=== PATIENT | female | born 1985 | race Caucasian/White ===

== ENCOUNTER 2022-07-18 17:05 | Emergency (ER) | payer OTHER ==
[~2022-07-18] VITALS: Ht 175 cm; Wt 115.0 kg
[~2022-07-18 17:05] MED LIST: ACHD5005 PO; CEFD300C3 PO; CIPR500T78 PO; CLIN150C20 PO; Docusate Sodium PO; HYDR-3720 PO; Ibuprofen PO; LISI10TA2 PO; LORA-404 PO; MECL25TA3 PO; METO-351 PO; PEDI1TAB46 PO
[2022-07-18] MEDS ORDERED: FAMO20TA5 (17:22)
[2022-07-18 17:35] LABS: BILIRUBIN,URINE NEGATIVE (NEGATIVE); CLARITY,URINE CLEAR; COLOR,URINE YELLOW; GLUCOSE, URINE (UA) NEGATIVE (NEGATIVE); KETONES,URINE NEGATIVE (NEGATIVE); LEUKOCYTE ESTERASE ,URINE NEGATIVE (NEGATIVE); NITRITE,URINE NEGATIVE (NEGATIVE); PH,URINE 5.5 (5-9); PROTEIN,URINE NEGATIVE (NEGATIVE)
[2022-07-18 17:42] LABS: BACTERIA,URINE FEW /HPF
[2022-07-18] MEDS ORDERED: MECLIZINE 25 MG (ANTIVERT) TAB PO STA (18:28)
[2022-07-18] MEDS ORDERED: KETOROLAC 30 MG/ML VIAL IVP STA (18:28)
[2022-07-18] MEDS ORDERED: NS IV 500 ML 500 ML IV ONE (18:30)
--- NOTE | 2022-07-18 18:32 | ED Headache ---
General Chief Complaint: Head/Cervical Problems Stated Complaint: LIGHTHEADED,HEADACHE Nursing Triage Note: HEADACHE AND DIZZINESS X3 DAYS. RECENTLY DX WITH LOW VIT D. NO MEDS TAKEN FOR HEADACHE. History of Present Illness Date Seen by Provider: Jul 18, 2022 Time Seen by Provider: 17:20 Initial Comments 37-year-old female presents for headache and vertigo that have been present for approximately 3 days. She has not treated anything with prescription or [id number] medication. 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 She does not have history of recurrent headaches. Patient reports the vertigo improves when she lies down or sleeps. Timing/Duration: other (3 days) Severity/Quality: mild Location: occipital Associated Symptoms: No confusion, No fatigue, No facial pain, No fever/chills, No loss of consciousness, No nausea/vomiting, No nasal congestion, No stiff neck, No vision changes, No weakness Allergies and Home Medications Allergies Coded Allergies: Sulfa (Sulfonamide Antibiotics) (Verified Allergy, Intermediate, HIVES, 10/26/13) Hives and vomiting penicillin G (Verified Allergy, Unknown, 11/08/05) Patient Home Medication List Home Medication List Reviewed: Yes Famotidine (Famotidine) 20 Mg Tablet, (Reported) Entered as Reported by: TATIANA BARRETT on 07/18/221721 Last Action: New Order Discontinued Medications Clindamycin HCl (Clindamycin HCl) 150 Mg Capsule, 150 MG PO TID, (Reported) Discontinued Reason: No Longer Taking Entered as Reported by: EZIO HOWARD on 04/30/162153 Last Action: Discontinued Lorazepam (Ativan) 0.5 Mg Tablet, 0.5 MG PO QID PRN for ANXIETY, (Reported) Discontinued Reason: No Longer Taking Entered as Reported by: EZIO HOWARD on 04/30/162153 Last Action: Discontinued Metoprolol Succinate (Toprol Xl) 25 Mg Tab.er.24h, 12.5 MG PO DAILY, (Reported) Discontinued Reason: No Longer Taking Entered as Reported by: EZIO HOWARD on 04/30/162153 Last Action: Discontinued Review of Systems Review of Systems Constitutional: no symptoms reported, see HPI Psychiatric/Neurological: See HPI, Headache, Other (Vertigo) All Other Systems Reviewed Negative Unless Noted: Yes Past Ibipjhd-Yomait-Roytyq Hx Patient Social History Tobacco Use?: Yes Smoking Status: Former Smoker Substance use?: No Alcohol Use?: No Immunizations Up To Date Tetanus Booster (TDap): Less than 5yrs PED Vaccines UTD: Yes Second COVID19 Vaccination Fernie: UNKNOWN COVID19 Vaccine Door Patcher: MODERNA Seasonal Allergies Seasonal Allergies: No Past Medical History Gallbladder Hypertension, Irregular Heartbeat, Palpitations Last Menstrual Period: Jul 04, 2022 Reproductive Disorders: No Female Reproductive Disorders: Denies Sexually Transmitted Disease: No HIV/AIDS: No Gastroesophageal Reflux, Hemorrhoids, Gall Bladder Disease Fractures Loss of Vision: Denies Hearing Impairment: Denies Anxiety Psoriasis Adverse Reaction/Blood Tranf: No Family Medical History Reviewed Nursing Family Hx Alcoholism 19 FATHER Arthritis MATERNAL GRANDMA MATERNAL GRANDFATHER PATERNAL GRANDMOTHER PATERNAL GRANDFATHER Cardiovascular disease 19 FATHER ( AGE 51 YEARS) Coronary thrombosis 19 FATHER ( AGE 51) Diabetes mellitus PATERNAL GRANDMOTHER PATERNAL GRANDFATHER Hypertension 19 FATHER MATERNAL GRANDMA MATERNAL GRANDFATHER PATERNAL GRANDMOTHER PATERNAL GRANDFATHER Myocardial infarction PATERNAL GRANDMOTHER Neoplasm MATERNAL GRANDMA Parkinson's disease MATERNAL GRANDFATHER No Family History of: AIDS Abdominal aortic aneurysm [place]'s disease Alzheimer's disease Aphasia Asthma Cancer of mouth Cataracts Colon cancer Completed stroke Congenital disease Congenital heart disease Cystic fibrosis Deafness or hearing loss Dementia Drug abuse Dysphasia Fibrocystic disease of breast Gastroenteritis Glaucoma Headache disorder Hypercholesterolemia Infertility Kidney disease Not obtainable due to adoption Osteoporosis Prostate cancer Psychosocial problem Respiratory disorder Seizure disorder Severe allergy Thyroid disease Tuberculosis Visual disorder Physical Exam Vital Signs Vital Signs - First Documented 07/18/22 17:18 Temp 36.9 Pulse 77 Resp 16 B/P (MAP) 157/82 (107) Pulse Ox 95 O2 Delivery Room Air Capillary Refill : Less Than 3 Seconds Height, Weight, BMI Height: 5'9" Weight: 210lbs. oz. 95.536708im; 37.00 BMI Method:Stated General Appearance: WD/WN, no apparent distress HEENT: PERRL/EOMI, normal ENT inspection, TMs normal, pharynx normal Neck: full range of motion, supple, normal inspection, tender midline Cardiovascular: normal peripheral pulses, regular rate, rhythm Respiratory: chest non-tender, lungs clear, normal breath sounds Gastrointestinal: normal bowel sounds, non tender, soft Extremities: normal range of motion, non-tender, normal inspection, normal capillary refill Psychiatric: alert, oriented x 3, depressed affect Crainal Nerves: normal hearing, normal speech, PERRL Coordination/Gait: normal finger to nose, normal gait Skin: normal color, warm/dry Progress/Results/Core Measures Results/Orders Lab Results Laboratory Tests Test 07/18/22 17:33 Range/Units Urine Color YELLOW Urine Clarity CLEAR Urine pH 5.5 5-9 Urine Specific [place] 1.010 L 1.016-1.022 Urine Protein NEGATIVE NEGATIVE Urine Glucose (UA) NEGATIVE NEGATIVE Urine Ketones NEGATIVE NEGATIVE Urine Nitrite NEGATIVE NEGATIVE Urine Bilirubin NEGATIVE NEGATIVE Urine Urobilinogen 0.2 < = 1.0 MG/DL Urine Leukocyte Esterase NEGATIVE NEGATIVE Urine RBC (Auto) NEGATIVE NEGATIVE Urine RBC 2-5 H /HPF Urine WBC NONE /HPF Urine Squamous Epithelial Cells 2-5 /HPF Urine Crystals NONE /LPF Urine Bacteria FEW H /HPF Urine Casts NONE /LPF Urine Mucus NEGATIVE /LPF Urine Culture Indicated YES My Orders Orders - KRAIG BENSON Ua Culture If Indicated (07/18/22 17:27) Urine Bedside (07/18/22 17:27) Urine Culture (07/18/22 17:33) Ed Iv/Invasive Line Start (07/18/22 18:28) Ns Iv 500 Ml (Sodium Chloride 0.9%) (07/18/22 18:30) Ketorolac Injection (Toradol Injection) (07/18/22 18:28) Meclizine Tablet (Antivert Tablet) (07/18/22 18:28) Orthostatic Vital Signs (Adult (07/18/22 18:33) Medications Given in ED Current Medications Medications Dose Ordered Sig/Maribeth Route Start Time Stop Time Status Last Admin Dose Admin Sodium Chloride 500 ml @ 0 mls/hr Q0M ONCE IV 07/18/22 18:30 07/18/22 18:31 DC 07/18/22 18:36 500 MLS/HR Vital Signs/I&O 07/18/22 07/18/22 07/18/22 17:18 18:44 19:37 Temp 36.9 Pulse 77 73 83 86 76 Resp 16 B/P (MAP) 157/82 (107) 126/77 (93) 139/77 144/99 (114) 134/86 (102) Pulse Ox 95 100 O2 Delivery Room Air Room Air Blood Pressure Mean: 107 Progress Progress Note : Time: 17:20 Progress Note Patient assessed, will give Toradol 60 mg IM in meclizine 25 mg p.o. Will check labs and orthostatic B/Ps. 1835 patient reports improvement in symptoms. Discharge instructions and return precautions reviewed with the patient. All questions answered. Departure Impression Primary Impression: Headache Qualified Codes: R51.9 - Headache, unspecified Additional Impression: Vertigo Disposition: HOME, SELF-CARE Condition: Improved Departure-Patient Inst. Decision time for Depature: 18:35 Referrals: ANGEL GUERRERO (PCP/Family) Primary Care Physician Patient Instructions: Headache, Adult (DC), Vertigo (a Type of Dizziness) (DC) Add. Discharge Instructions: Use meclizine 25 mg every 8 hours for dizziness. Alternate between Tylenol 650 mg and ibuprofen 600 mg every 4 hours for headache. We will call you with the urine culture results. Continue to increase water intake. Follow-up with primary care provider if symptoms or not improving or worsen. All discharge instructions reviewed with patient and/or family. Voiced understanding. KRAIG BENSON Jul 18, 2022 18:32
[2022-07-18 18:44] VITALS: BP_SYST 126; BP_SYST 134; BP_SYST 144; BP_DIAS 77; BP_DIAS 86; BP_DIAS 99
[2022-07-18 19:37] VITALS: BP 139/77
== END 2022-07-18 19:35 | disposition home or self-care (01) ==
LOC: EDUNIT# 17:05 → ER 17:07
DX: R51.9 Headache, unspecified (principal); R42 Dizziness and giddiness; Z87.891 Personal history of nicotine dependence
CPT/HCPCS: 81000; 84703; 87088; 99283